=== PATIENT | female | born 1990 | race Caucasian/White ===

== ENCOUNTER → 2021-08-07 13:41 | Outpatient (CLI) | payer OTHER, SELFPAY ==
--- NOTE | 2021-08-07 | DI.MRI.S_ITS ---
PROCEDURE: MR ANKLE RT WO CON INDICATIONS: Localized swelling, mass and lump, right lower goode TECHNIQUE: Noncontrast sagittal T1 spin echo and T2 fast spin echo with fat saturation, axial proton density fast spin echo and T2 fast spin echo with fat saturation, coronal T1 spin echo and T2 fast spin echo with fat saturation through the ankle/hindfoot. COMPARISON: [facility], CR, XR ANKLE 3 VIEWS WEIGHT BEARING RIGHT, 07/29/2021, 9:45. FINDINGS: Image quality: Excellent. Bones and joints: No bone marrow contusions or fractures. No hindfoot coalitions. No osteochondral injuries of the talar dome. No pathologic joint effusions. Medial structures: The posterior tibialis, flexor digitorum longus, and flexor hallucis longus tendons are intact. The posterior tibial neurovascular bundle appears normal within the tarsal tunnel, without extrinsic mass effect. The deep layer (anterior and posterior tibiotalar ligaments) and superficial layer (tibionavicular, tibiospring, and tibiocalcaneal ligaments) of the deltoid ligament appear normal. The spring ligament components (superomedial calcaneonavicular, medioplantar oblique calcaneonavicular, and inferoplantar longitudinal ligaments) are intact. Lateral structures: Lobulated cystic structure with thin internal septation is noted in posterior lateral ankle soft tissue posterior to the peroneus tendons and muscles and measures up to 2.1 x 2.5 x 3.4 cm in size. The anterior talofibular, calcaneofibular, and posterior talofibular ligaments appear intact. More superiorly, the anterior and posterior tibiofibular ligaments appear intact, as is the intermalleolar ligament. The tibiofibular syndesmosis is normal in width at 2 mm or less. The peroneus longus and brevis tendons demonstrate normal location and morphology. Adjacent bony peroneal tubercle and retrotrochlear prominence are normal in size. The sinus tarsi demonstrates normal fatty signal, without edema, fibrosis, or cyst formation. Visualized sinus tarsi components (cervical ligament, interosseous talocalcaneal ligament, roots of the inferior extensor retinaculum) appear normal. The calcaneonavicular and calcaneocuboid components of the bifurcate ligament appear intact. The dorsal calcaneocuboid ligament appears intact. Anterior structures: The tibialis anterior, extensor hallucis longus, and extensor digitorum longus tendons appear intact. The dorsal talonavicular ligament appears intact. Posterior and plantar structures: Achilles tendon is intact. Medial and lateral bands of the plantar fascia are of normal thickness. No abductor digiti quinti muscle atrophy to suggest Yin neuropathy. IMPRESSION: 1. Lobulated and septated cystic structure within posterior lateral ankle soft tissue posterior to peroneus tendons and muscles and is superior and lateral to the posterior calcaneus as described above likely represent a large ganglion cyst in this area. No other soft tissue mass or fluid collection is seen. 2. No marrow edema. No fracture or dislocation. No osteochondral injury of talar dome. 3. Ankle tendons and ligaments are grossly intact. Dictated by: Librado Valladares M.D. on 08/07/2021 at 15:41 Approved by: Librado Valladares M.D. on 08/07/2021 at 16:46
== END ==
PROVIDERS: Referring Provider Orthopaedic Surgery Foot and Ankle Surgery; Visit Provider Orthopaedic Surgery Foot and Ankle Surgery
DX: R22.41 Localized swelling, mass and lump, right lower limb (principal)
CPT/HCPCS: 73721

== ENCOUNTER → 2021-08-22 18:55 | Outpatient (CLI) | payer OTHER, SELFPAY ==
--- NOTE | 2021-08-22 | DI.MRI.S_ITS ---
PROCEDURE: MR LUMBAR SPINE WO CON INDICATIONS: SPINAL STENOSIS LUMBAR REGION TECHNIQUE: Noncontrast sagittal T1 spin echo and T2 fast spin echo, sagittal STIR through the thoracic and lumbar spines, with additional T2 fast spin echo images acquired through levels of compression fractures. COMPARISON: None. FINDINGS: Normal lumbar vertebral body height and alignment. There is no suspicious focal marrow signal abnormality. Discogenic marrow edema at the opposing L4-L5 endplates. Normal position and appearance of the conus. Prevertebral and paraspinous soft tissues are normal. From T12-L1 through L2-L3, no spinal canal stenosis, neural foraminal stenosis, or significant degenerative change. At L3-L4, disc desiccation and height loss. Diffuse disc bulge flattens the ventral thecal sac without mass effect upon the traversing L4 nerve roots. No neural foraminal stenosis. At L4-L5, disc desiccation and disc height loss. Diffuse disc bulge flattens the ventral thecal sac without mass effect upon the traversing L5 nerve roots. Foraminal components of the disc bulge contribute to moderate right and mild left neural foraminal stenosis with abutment of the exiting right L4 nerve root by disc material in the right neural foramen. At L5-S1, diffuse disc bulge with no obvious displacement of the descending S1 nerve roots. No neural foraminal stenosis. IMPRESSION: Mild lower lumbar spine degenerative changes. No significant spinal canal stenosis. Moderate neural foraminal narrowing on the right at L4-L5. Correlate for any corresponding right L4 radiculopathy. Discogenic marrow edema at the opposing L4-L5 endplates, a potential source of nonradicular axial back pain. Dictated by: Ciro Mayer M.D. on 08/23/2021 at 4:09 Approved by: Ciro Mayer M.D. on 08/23/2021 at 4:13
== END ==
PROVIDERS: Referring Provider Orthopaedic Surgery Orthopaedic Surgery of the Spine; Visit Provider Orthopaedic Surgery Orthopaedic Surgery of the Spine
DX: M48.061 Spinal stenosis, lumbar region without neurogenic claudication (principal); M47.816 Spondylosis without myelopathy or radiculopathy, lumbar region
CPT/HCPCS: 72148

== ENCOUNTER → 2023-03-18 08:23 | Outpatient (CLI) | payer OTHER, SELFPAY ==
[2023-03-18 09:56] LABS: Hematocrit 45.2 % (36-46); Hemoglobin 15.4 g/dL (12.0-16.0); Mean Corpuscular HGB Conc 34.1 % (30-36); Mean Corpuscular Hemoglobin 31.4 PG (26-34); Mean Corpuscular Volume 91.9 fL (80-100); Platelet Count 179 X10^3/uL (150-400); Red Blood Cell Count 4.92 X10^6/uL (4.0-5.2); Red Cell Distribution Width 12.9 % (11.6-14.8); White Blood Cell Count 3.9 X10^3/uL (4.5-11.0)
[2023-03-18 10:03] LABS: Alanine Aminotransferase 13 IU/L (<35); Albumin 4.7 g/dL (3.5-5.0); Albumin Globulin Ratio 1.3 (1.0-2.8); Alkaline Phosphatase 52 U/L (38-126); Aspartate Aminotransferase 21 IU/L (14-36); BUN Creatinine Ratio 17.3 (6-22); Bilirubin Total 1.5 mg/dL (0.2-1.3); Blood Urea Nitrogen 13 mg/dL (7-17); Carbon Dioxide 27 mmol/L (22-32); Chloride 105 mmol/L (98-107); Cholesterol 208 mg/dL (140-199); Estimated Glomerular Filt Rate > 60 mL/min (>60); Globulin 3.7 g/dL (1.7-4.1); Glucose 92 mg/dL (70-100); HDL Cholesterol 72 mg/dL (40-60); HEMOLYSIS < 15 (0-50); LDL Cholesterol Calculated 126 mg/dL (<100); Potassium 3.8 mmol/L (3.4-5.1); Sodium 140 mmol/L (137-145); Total Protein 8.4 g/dL (6.3-8.2); Triglycerides 51 mg/dL (35-150)
[2023-03-19 14:24] LABS: Rubeola Measles IgG > 300.0 AU/mL (Immune >16.4); Varicella IgG Antibody 3358 index (Immune >165)
[2023-03-20 06:45] LABS: Hepatitis B Surf Ab Qualitativ Reactive (.)
[2023-03-21 04:33] LABS: Lipoprotein (a) 121.4 nmol/L (<75.0)
[2023-03-21 07:03] LABS: Alder IgE <0.10 kU/L (Class 0); Almond IgE <0.10 kU/L (Class 0); Alternaria alternata IgE <0.10 kU/L (Class 0); Aspergillus fumigatus IgE <0.10 kU/L (Class 0); Box Elder IgE <0.10 kU/L (Class 0); Cashew Nut IgE <0.10 kU/L (Class 0); Cat Dander IgE <0.10 kU/L (Class 0); Cladosporium herbarum IgE <0.10 kU/L (Class 0); Cockroach IgE 0.12 kU/L (Class 0/I); Codfish Allergy IgE < 0.10 kU/L (Class 0); Cottonwood IgE <0.10 kU/L (Class 0); D farinae IgE <0.10 kU/L (Class 0); D pteronyssinus IgE <0.10 kU/L (Class 0); Dog Dander IgE <0.10 kU/L (Class 0); Egg White IgE <0.10 kU/L (Class 0); Elm Tree IgE <0.10 kU/L (Class 0); Hazelnut IgE <0.10 kU/L (Class 0); Immunoglobulin E 45 IU/mL (6-495); Milk IgE <0.10 kU/L (Class 0); Mountain Cedar IgE <0.10 kU/L (Class 0); Mouse Urine Proteins IgE <0.10 kU/L (Class 0); Nettle IgE <0.10 kU/L (Class 0); Oak Tree IgE <0.10 kU/L (Class 0); Peanut IgE <0.10 kU/L (Class 0); Penicillium chrysogen IgE <0.10 kU/L (Class 0); Pigweed, Common IgE <0.10 kU/L (Class 0); Ragweed, Short <0.10 kU/L (Class 0); Salmon Allergy IgE < 0.10 kU/L (Class 0); Scallop Allergy IgE 0.12 kU/L (Class 0/I); Sesame seed Allergy IgE < 0.10 kU/L (Class 0); Sheep Sorrel IgE <0.10 kU/L (Class 0); Shrimp IgE 0.15 kU/L (Class 0/I); Silver Birch IgE <0.10 kU/L (Class 0); Soybean IgE <0.10 kU/L (Class 0); Timothy Grass IgE <0.10 kU/L (Class 0); Tuna Allergy IgE < 0.10 kU/L (Class 0); Walnut Allery IgE < 0.10 kU/L (Class 0); Walnut IgE <0.10 kU/L (Class 0); Wheat Allergy IgE < 0.10 kU/L (Class 0); White ash IgE <0.10 kU/L (Class 0)
[2023-03-21 13:36] LABS: QuantiFERON Mitogen Value >10.00 IU/mL (.); QuantiFERON TB Gold Plus Negative (Negative)
== END ==
LOC: LAB 08:24
PROVIDERS: PCP Registered Nurse Diabetes Educator; Referring Provider Registered Nurse Diabetes Educator; Visit Provider Registered Nurse Diabetes Educator
DX: Z00.00 Encounter for general adult medical examination without abnormal findings (principal); Z91.018 Allergy to other foods; Z91.09 Other allergy status, other than to drugs and biological substances; Z82.49 Family history of ischemic heart disease and other diseases of the circulatory system
CPT/HCPCS: 36415; 80053; 80061; 82785; 83695; 84443; 85027; 86003; 86480; 86706; 86735; 86762; 86765; 86787